=== PATIENT | male | born 1965 | race Caucasian/White ===

== ENCOUNTER 2019-04-06 01:44 | Emergency (ER) | payer BC ==
[2019-04-06] MEDS ORDERED: Phenylephrine 1% 10 MG/ML SDV ONE (02:40)
--- NOTE | 2019-04-06 02:59 | EDM.PDOC ---
ED HPI GENERAL MEDICAL PROBLEM - General Chief Complaint: General Stated Complaint: erection 3 hours Time Seen by Provider: 04/06/19 02:10 Source of Information: Reports: Patient, Significant Other History Limitations: Reports: No Limitations - History of Present Illness INITIAL COMMENTS - FREE TEXT/NARRATIVE: Patient presents with priapism after injecting Trimex about 4 hours ago. He had a prostatectomy one year ago and this is the first time he has tried injecting to achieve an erection. After 90 minutes it hadn't gone down so he took pseudoephedrine 60 mg but didn't work. Patient is healthy and doesn't have high blood pressure. Penis Pain Score (Numeric/FACES): 3 - Related Data Allergies Allergy/AdvReac Type Severity Reaction Status Date / Time Sulfa (Sulfonamide Allergy Mild Excitabilit Verified 04/06/19 01:50 Antibiotics) y Past Medical History Genitourinary History: Reports: Prostate Disorder Oncologic (Cancer) History: Reports: Prostate - Past Surgical History Male Surgical History: Reports: Prostatectomy Social & Family History - Tobacco Use Smoking Status *Q: Never Smoker Second Hand Smoke Exposure: No - Caffeine Use Caffeine Use: Reports: Coffee, Soda - Recreational Drug Use Recreational Drug Use: No ED ROS GENERAL - Review of Systems Review Of Systems: See Below Constitutional: Denies: Fever, Chills HEENT: Reports: No Symptoms Respiratory: Reports: No Symptoms Cardiovascular: Reports: No Symptoms Endocrine: Reports: No Symptoms GI/Abdominal: Reports: No Symptoms : Reports: Pain (he states it is just uncomfortable; not painful) Musculoskeletal: Reports: No Symptoms Skin: Reports: No Symptoms Neurological: Reports: No Symptoms Psychiatric: Reports: No Symptoms ED EXAM, GENERAL - Physical Exam Exam: See Below Exam Limited By: No Limitations General Appearance: Alert, WD/WN, No Apparent Distress Eye Exam: Bilateral Eye: Normal Inspection, PERRL Ears: Normal External Exam, Hearing Grossly Normal Nose: Normal Inspection Throat/Mouth: Normal Inspection, Normal Lips, Normal Voice, No Airway Compromise Head: Atraumatic, Normocephalic Neck: Normal Inspection Respiratory/Chest: No Respiratory Distress Cardiovascular: No: Tachycardia (Male) Exam: Other (Penis is erect and pink, nontender). No: Penile Lesions , Rash, Urethral Discharge Extremities: Normal Inspection Neurological: Alert, Oriented, Normal Cognition Psychiatric: Normal Affect, Normal Mood Skin Exam: Warm, Dry, Intact, Normal Color, No Rash Course - Vital Signs Last Recorded V/S: Last Vital Signs Temp 97.5 F 04/06/19 01:52 Pulse 88 04/06/19 01:52 Resp 18 04/06/19 01:52 BP 144/87 H 04/06/19 01:52 Pulse Ox 97 04/06/19 01:52 - Orders/Labs/Meds Meds: Medications Discontinued Medications Generic Name Dose Route Start Last Admin Trade Name Nicole PRN Reason Stop Dose Admin Phenylephrine HCl Confirm 04/06/19 02:40 Alan-Synephrine Administered 04/06/19 02:41 Dose 10 mg .ROUTE .STK-MED ONE - Re-Assessments/Exams Free Text/Narrative Re-Assessment/Exam: 04/06/19 03:02 I discussed case with Dr. Horton, urologist, who explained to me the treatment procedure and offered that patient could be transferred there for treatment also. After discussing with patient he and his will go to [place] for treatment. I discussed case with ER Dr. Guevara who accepted for transfer. They were discharged in stable condition to go directly to [facility]. Departure - Departure Time of Disposition: 03:01 Disposition: DC/Tfer to Acute Hospital 02 Condition: Good Clinical Impression: Priapism, drug-induced - Discharge Information Additional Instructions: 1. Go to [facility]. Sepsis Event Note - Evaluation Sepsis Screening Result: No Definite Risk - Focused Exam Vital Signs: Vital Signs Temp Pulse Resp BP Pulse Ox 04/06/19 01:52 97.5 F 88 18 144/87 H 97 Date Exam was Performed: 04/06/19 Time Exam was Performed: 02:54
== END 2019-04-06 02:50 ==
LOC: KA.ED 01:44
DX: N48.33 Priapism, drug-induced (principal); T50.995A Adverse effect of other drugs, medicaments and biological substances, initial encounter; Z88.2 Allergy status to sulfonamides
CPT/HCPCS: 99284